=== PATIENT | male | born 1970 | race Caucasian/White ===

== ENCOUNTER 2017-01-08 01:10 | Emergency (ER) | payer OTHER ==
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
[2017-01-08 02:51] VITALS: BP 130/85
== END 2017-01-08 02:00 | disposition home or self-care (01) ==
LOC: FB.ED 01:10
DX: S09.90XA Unspecified injury of head, initial encounter (principal); Y04.0XXA Assault by unarmed brawl or fight, initial encounter
CPT/HCPCS: 99283